=== PATIENT | male | born 1965 | race Caucasian/White ===

== ENCOUNTER 2021-09-05 08:50 | Day surgery (SDC) | payer OTHER, SELFPAY ==
[2021-09-03 13:25] VITALS: BMI 28.8
[2021-09-05 09:29] VITALS: BP 118/77; PULSE 82; RESP 16; TEMP 36.2; O2SAT 97
[2021-09-05] MEDS: sodium chloride 0.9% 1,000 ML 30 ML IV (09:46)
--- NOTE | 2021-09-05 09:50 | W.PM.OPSFHP ---
Same Day Surgery H&P Indication for Procedure/HPI DATE OF PROCEDURE: September 05, 2021 CHIEF COMPLAINT/INDICATIONFOR SURGICAL PROCEDURE: Screening colonoscopy PREOP DIAGNOSIS: Screening colonoscopy PLANNED PROCEDURE: Operation Date: 09/05/21 10:15 Proposed Procedures p Colonoscopy 61073/z12.11(Not Applicable) - David Schmid MD This is a pleasant 56 years old gentleman presents to my practice with a referral for screening colonoscopy. Denies bleeding per rectum or history of colon cancer. Or nonintentional weight loss. ROS All systems have been reviewed negative except as for the above or per problem list. Medications/Allergies* Home Medications Medication Instructions Recorded Confirmed Type No Known Home Medications 09/03/21 09/03/21 History Allergies/Adverse Reactions Allergy/AdvReac Type Severity Reaction Status Date / Time No Known Allergies Allergy Verified 09/05/21 09:51 Current Medications: Generic Name Dose Route Start Last Admin Trade Name Freq PRN Reason Stop Dose Admin Sodium Chloride 1,000 mls @ 30 mls/hr 09/05/21 09:15 09/05/21 09:46 Sodium Chloride 0.9% IV 09/06/21 09:14 30 mls/hr .Q24H CARLIN Administration Pertinent Exam Findings alert, oriented x 3, clear to auscultation bilaterally, regular rate & rhythm and procedure specific exam findings (Abdominal examination nontender nondistended soft) Recommendations Surgery/Procedure today (Colonoscopy with possible biopsy) Other Plans: Plan of care; After thorough history and physical examination and reviewing the chart, plan to perform screening colonoscopy. I discussed with the patient in details the risks,benefits,alternatives and indications.The risk of aspiration, bleeding, soft tissue injury, perforation of the colon and other potential concomitant complications were explained to the patient in details,also the potential need for Laproscoy/Laparotomy to repair any related complications including but not limited to colectomy and or Closotomy.The patient understood this well and did agree to proceed. Rationale was carefully and clearly discussed with the patient.Appropriate informed consent have been reviewed and signed All questions have been answered and all concerns have been addressed to patient's satisfaction. 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
--- NOTE | 2021-09-05 10:30 | ANES.PREANE2 ---
Pre-Anesthetic Assessment Height/Weight: Height 1.73 m Weight 86.183 kg Temp Pulse Resp BP Pulse Ox 97.1 F L 82 16 118/77 97 09/05/21 09:29 09/05/21 09:29 09/05/21 09:29 09/05/21 09:29 09/05/21 09:29 Preop Diagnosis: Screening colonoscopy Operation Date: 09/05/21 10:15 Proposed Procedures p Colonoscopy 24923/[id number](Not Applicable) - David Schmid MD Familial anesthetic complications: None Was Beta Erlinda taken within 24 hours: N/A Was Clonidine taken within 24 hours: N/A Last intake: Intake Last Liquid Date 09/04/21 Last Liquid Time 00:00 Last Solid Date 09/03/21 Last Solid Time 00:00 Social No alcohol and No tobacco Exam alert, oriented x 3, clear to auscultation bilaterally and regular rate & rhythm Airway Submandibular: within normal limits Cervical ROM: within normal limits Mallampati: Class II Dentition: full History/ROS No significant history except as noted Anesthetic Plan ASA status: 1 Anesthesia: MAC Medications/Allergies Home Medications Medication Instructions Recorded Confirmed Last Taken Type No Known Home Medications 09/03/21 09/03/21 Unknown History Allergies Allergy/AdvReac Type Severity Reaction Status Date / Time No Known Allergies Allergy Verified 09/05/21 09:51 Current Medications Generic Name Dose Route Start Last Admin Trade Name Freq PRN Reason Stop Dose Admin Sodium Chloride 1,000 mls @ 30 mls/hr 09/05/21 09:15 09/05/21 09:46 Sodium Chloride 0.9% IV 09/06/21 09:14 30 mls/hr .Q24H CARLIN Administration Data Anesthesia Cardiac Studies: No Data to Display
[2021-09-05 11:33] VITALS: BP 105/70; PULSE 76; RESP 16; TEMP 36.3; O2SAT 98
[2021-09-05 11:46] VITALS: BP 112/71; PULSE 73; RESP 16; O2SAT 96
--- NOTE | 2021-09-05 13:19 | ANE.PACU2 ---
Inpatient post-anesthesia follow up: Airway intact: Yes Vital signs: Temperature 97.4 F Pulse Rate 73 Respiratory Rate 16 Blood Pressure 112/71 Pulse Oximetry 96 Oxygen Delivery Me thod Room Air Oxygen Flow Rate Fraction of Inspir ed Oxygen Hydration adequate: Yes Nausea and vomiting: No Pain level: 1 Mental status: Baseline
== END 2021-09-05 11:56 | disposition home or self-care (01) ==
PROVIDERS: Visit Provider Surgery
PROC: 0DJD8ZZ Inspection of Lower Intestinal Tract, Via Natural or Artificial Opening Endoscopic (ICD-10-PCS; CPT 45378; principal; 2021-09-05 10:15)
DX: Z12.11 Encounter for screening for malignant neoplasm of colon (principal)
CPT/HCPCS: 45378; J2704; J7030